=== PATIENT | female | born 1990 | race Hispanic/Latino ===

== ENCOUNTER 2020-07-20 14:00 | Inpatient (IN) | payer MEDICAID ==
[~2020-07-20] VITALS: Ht 157.5 cm; Wt 98.0 kg
[2020-07-21] VITALS (19 sets, daily range): BP systolic 85–110; BP diastolic 44–61
[2020-07-21] MEDS ORDERED: CEFAZOLIN SODIUM 1 GM VIAL IVP PRN (06:00)
[2020-07-21] MEDS ORDERED: LACTATED RINGERS 1000ML 1,000 ML IV SCH (06:00)
[2020-07-21 06:50] LABS: HEMATOCRIT 32.3 % (36-48); MEAN CORPUSCULAR HEMOGLOBIN 22.4 pg (27.0-33.0); MEAN CORPUSCULAR VOLUME 74.4 fL (79-99); NUCLEATED RED BLOOD CELLS 0.2 % (0.0-0.19); PLATELET COUNT (AUTO) 262 K/uL (130-400); RED BLOOD CELL COUNT(AUTO) 4.34 MIL/uL (4.00-5.50); RED CELL DISTRIBUTION WIDTH 18.4 % (11.0-15.5); WHITE BLOOD COUNT (AUTO) 8.9 K/uL (4.8-10.8)
[2020-07-21] MEDS ORDERED: DURAMORPH PF1 MG/ML 10ML AMP IV ONE (07:42)
[2020-07-21] MEDS ORDERED: FENTANYL CITRATE PF 50 MCG/1 ML 2ML VIAL ONE (07:42)
[2020-07-21] MEDS ORDERED: CITRIC ACID/SODIUM CITRATE 30 ML UDCUP ONE (07:50)
[2020-07-21] MEDS ORDERED: CEFAZOLIN SODIUM 1 GM VIAL IVP ONE (08:05)
[2020-07-21] MEDS ORDERED: OXYTOCIN 10 USP UNITS/ML ONE (08:14)
[2020-07-21] MEDS ORDERED: ONDANSETRON HCL 4 MG/2 ML VIAL ONE (08:17)
[2020-07-21] MEDS ORDERED: EPHEDRINE SULFATE 50 MG/ML AMPULE ONE (08:17)
[2020-07-21] MEDS ORDERED: PHENYLEPHRINE HCL 10 MG/ML 1ML VIAL IV ONE (08:48)
[2020-07-21] MEDS ORDERED: PROMETHAZINE HCL 25 MG/ML 1ML AMPULE IM PRN (09:00)
[2020-07-21] MEDS ORDERED: SODIUM CHLORIDE 0.9% 10 ML VIAL IVP PRN (09:00)
[2020-07-21] MEDS ORDERED: OXYTOCIN-LR 20 UNITS/1000 ML 1,000 ML IV PRN (09:00)
[2020-07-21] MEDS ORDERED: MEPERIDINE-PF 75 MG/ML SYG IM PRN (09:00)
[2020-07-21] MEDS ORDERED: PREN1COM17 PO (14:21)
[2020-07-21] MEDS ORDERED: NALOXONE HCL 0.4 MG/1 ML ML IVP PRN ×3 (16:45)
[2020-07-21] MEDS ORDERED: DiphenhydrAMINE HCL 50 MG/ML VIAL IVP PRN (16:45)
[2020-07-21] MEDS ORDERED: LORATADINE 10 MG TABLET PO PRN (16:45)
[2020-07-21] MEDS ORDERED: ONDANSETRON HCL 4 MG/2 ML VIAL IVP PRN (16:45)
[2020-07-21] MEDS ORDERED: MEPERIDINE-PF 25 MG/ML SYG IV PRN (16:45)
[2020-07-21] MEDS: DEXTROSE 5 %-0.45 % NACL 1,000 ML IV PRN (16:51)
[2020-07-21] MEDS ORDERED: ACETAMINOPHEN-CODEINE 300/30MG TAB PO PRN (20:30)
[2020-07-21] MEDS: ACETAMINOPHEN-CODEINE 300/30MG TAB PO PRN (21:35)
[2020-07-22] MEDS: DEXTROSE 5 %-0.45 % NACL 1,000 ML IV PRN (00:56)
[2020-07-22 03:52] VITALS: BP 98/58
[2020-07-22] MEDS: ACETAMINOPHEN-CODEINE 300/30MG TAB PO PRN (04:56)
[2020-07-22 06:12] LABS: HEPATITIS Bs ANTIGEN SCREEN P Negative (Negative)
[2020-07-22 06:17] LABS: HEMATOCRIT 29.4 % (36-48); MEAN CORPUSCULAR HEMOGLOBIN 22.3 pg (27.0-33.0); MEAN CORPUSCULAR HGB CONC 29.6 g/dL (32.0-36.0); MEAN CORPUSCULAR VOLUME 75.4 fL (79-99); RED BLOOD CELL COUNT(AUTO) 3.9 MIL/uL (4.00-5.50); RED CELL DISTRIBUTION WIDTH 18.4 % (11.0-15.5); WHITE BLOOD COUNT (AUTO) 9.4 K/uL (4.8-10.8)
[2020-07-22 07:25] VITALS: BP 109/61
[2020-07-22] MEDS ORDERED: IBUPROFEN 800 MG TAB PO SCH ×2 (09:00→09:30)
[2020-07-22] MEDS ORDERED: LANOLIN 30GM OINTMENT TP PRN (09:30)
[2020-07-22] MEDS ORDERED: SIMETHICONE 80 MG TAB.CHEW PO PRN (09:30)
[2020-07-22] MEDS ORDERED: MEASLES/MUMPS/RUBELLA VACCINE, LIVE 0.5 ML/VIAL SQ SCH (09:30)
[2020-07-22] MEDS ORDERED: DIPH,PERTUSS(ACELL),TET VAC/PF 0.5 ML VIAL IM SCH (09:30)
[2020-07-22] MEDS ORDERED: ACETAMINOPHEN-CODEINE 300/30MG TAB PO PRN (09:30)
[2020-07-22] MEDS ORDERED: BISACODYL 10 MG SUPP.RECT RC PRN (09:30)
[2020-07-22] MEDS ORDERED: HYDROCODONE/ACETAMINOPHEN 5/325 MG TAB PO PRN (09:30)
[2020-07-22] MEDS ORDERED: ACETAMINOPHEN EXTRA STRENGTH 500 MG TABLET PO PRN (09:30)
[2020-07-22] MEDS ORDERED: FLU VACC QS2020-21(6MOS UP)/PF 60 MCG/0.5 ML ML IM ONE ×2 (10:45→11:03)
[2020-07-22] MEDS ORDERED: DOCUSATE SODIUM 100 MG CAP PO ONE (11:02)
[2020-07-22 11:14] VITALS: BP 103/67
[2020-07-22] MEDS ORDERED: FLU VACC QS2020-21(6MOS UP)/PF 60 MCG/0.5 ML ML IM SCH (11:15)
[2020-07-22] MEDS ORDERED: DOCUSATE SODIUM 100 MG CAP PO SCH (21:00)
== END 2020-07-22 14:25 | disposition home or self-care (01) | DRG 540 ==
LOC: LDH 07-21 05:54 → WSH 07-21 11:00 → PREOBSVTOIN 07-21 15:55 → EDSTATUS 07-23 19:52
PROVIDERS: ADMIT Specialist; ATTEND Specialist
PROC: 3E0234Z Introduction of Serum, Toxoid and Vaccine into Muscle, Percutaneous Approach (ICD-10-PCS; 2020-07-21)
PROC: 3E0134Z Introduction of Serum, Toxoid and Vaccine into Subcutaneous Tissue, Percutaneous Approach (ICD-10-PCS; 2020-07-21)
PROC: 3E02340 Introduction of Influenza Vaccine into Muscle, Percutaneous Approach (ICD-10-PCS; 2020-07-21)
PROC: 10D00Z1 Extraction of Products of Conception, Low, Open Approach (ICD-10-PCS; principal; 2020-07-21 08:00)
DX: O34.211 Maternal care for low transverse scar from previous cesarean delivery (principal); O69.81X0 Labor and delivery complicated by cord around neck, without compression, not applicable or unspecified; Z3A.39 39 weeks gestation of pregnancy; Z37.0 Single live birth; Z20.828 Contact with and (suspected) exposure to other viral communicable diseases; Z23 Encounter for immunization; Z88.8 Allergy status to other drugs, medicaments and biological substances
CPT/HCPCS: 36415; 59510; 85027; 86592; 86850; 86900; 86901; 87340; 90707; 90715; A4344; G0008; G0378; J0690; J2274; J2370; J2405; J2590; J3010; J3490; J7120; Q2035; U0003

== ENCOUNTER 2020-11-01 22:01 | Emergency (ER) | payer MEDICAID ==
[~2020-11-01 22:01] MED LIST: PREN1COM17 PO
[2020-11-01] MEDS ORDERED: CEFTRIAXONE SODIUM 1 GM ONE (22:30)
[2020-11-01] MEDS ORDERED: PHENAZOPYRIDINE HCL 200 MG TABLET ONE (22:31)
[2020-11-01] MEDS ORDERED: ACETAMINOPHEN EXTRA STRENGTH 500 MG TABLET ONE (22:31)
[2020-11-01 22:33] LABS: BASOPHILS % (AUTO) 0.4 % (0.0-5.0); EOSINOPHILS % (AUTO) 0.1 % (0.0-8.0); HEMATOCRIT 36.3 % (36-48); LYMPHOCYTES % (AUTO) 12.5 % (21.0-51.0); MEAN CORPUSCULAR HEMOGLOBIN 26.9 pg (27.0-33.0); MEAN CORPUSCULAR HGB CONC 32.5 g/dL (32.0-36.0); MEAN CORPUSCULAR VOLUME 82.7 fL (79-99); MONOCYTES % (AUTO) 7.7 % (3.0-13.0); PLATELET COUNT (AUTO) 325 K/uL (130-400); RED BLOOD CELL COUNT(AUTO) 4.39 MIL/uL (4.00-5.50); RED CELL DISTRIBUTION WIDTH 18.5 % (11.0-15.5); WHITE BLOOD COUNT (AUTO) 14.1 K/uL (4.8-10.8)
[2020-11-01 22:34] LABS: APPEARANCE,URINE Clear (CLEAR); BILIRUBIN,URINE Negative (NEGATIVE); COLOR,URINE Yellow (YELLOW); GLUCOSE, URINE (UA) Negative (NEGATIVE); KETONES,URINE Negative (NEGATIVE); LEUKOCYTE ESTERASE ,URINE Moderate (NEGATIVE); NITRATE,URINE Negative (NEGATIVE); OCCULT BLOOD,URINE Large (NEGATIVE); PH,URINE 7.5 (5.0-8.0); PROTEIN,URINE Negative (NEGATIVE)
[2020-11-01 22:42] LABS: HCG,QUAL RESULT NEGATIVE (NEGATIVE)
[2020-11-01 22:42] LABS: CREATININE 0.9 mg/dL (0.5-1.5); POTASSIUM 3.4 mmol/L (3.5-5.1)
[2020-11-01 22:46] LABS: ALBUMIN 3.7 g/dL (3.5-5.0); BILIRUBIN,TOTAL 0.6 mg/dL (0.2-1.0); TOTAL PROTEIN, SERUM 8.2 g/dL (6.0-8.3)
[2020-11-01 22:56] LABS: RBC,URINE 0-1 /HPF (0-1)
[2020-11-01 22:57] LABS: BACTERIA,URINE Few /HPF (None Seen)
== END 2020-11-01 23:38 | disposition home or self-care (01) ==
LOC: EDH 22:01
DX: N30.00 Acute cystitis without hematuria (principal); E86.0 Dehydration; Z88.6 Allergy status to analgesic agent; Z98.890 Other specified postprocedural states
CPT/HCPCS: 36415; 80053; 81001; 81025; 83605; 85025; 87040 ×2; 87077 ×2; 87088; 87186 ×2; 96365; 99284; J0696

== ENCOUNTER 2022-06-11 23:49 | Emergency (ER) | payer MEDICAID ==
[~2022-06-11] VITALS: Ht 154.9 cm; Wt 75.3 kg
[2022-06-12 00:41] LABS: BASOPHILS % (AUTO) 0.2 % (0.0-5.0); EOSINOPHILS % (AUTO) 0.2 % (0.0-8.0); HEMATOCRIT 41.6 % (36-48); LYMPHOCYTES % (AUTO) 7.1 % (21.0-51.0); MEAN CORPUSCULAR HEMOGLOBIN 29.8 pg (27.0-33.0); MEAN CORPUSCULAR HGB CONC 32.9 g/dL (32.0-36.0); MEAN CORPUSCULAR VOLUME 90.6 fL (79-99); MONOCYTES % (AUTO) 5.4 % (3.0-13.0); NEUTROPHILS % (AUTO) 86.9 % (40.0-77.0); PLATELET COUNT (AUTO) 247 K/uL (130-400); RED BLOOD CELL COUNT(AUTO) 4.59 MIL/uL (4.00-5.50); RED CELL DISTRIBUTION WIDTH 13.6 % (11.0-15.5); WHITE BLOOD COUNT (AUTO) 9.6 K/uL (4.8-10.8)
[2022-06-12 00:42] LABS: APPEARANCE,URINE CLEAR (CLEAR); BILIRUBIN,URINE NEGATIVE (NEGATIVE); COLOR,URINE YELLOW (YELLOW); GLUCOSE, URINE (UA) NEGATIVE (NEGATIVE); KETONES,URINE 40 mg/dL (NEGATIVE); LEUKOCYTE ESTERASE ,URINE NEGATIVE Leu/uL (NEGATIVE); NITRATE,URINE NEGATIVE (NEGATIVE); OCCULT BLOOD,URINE NEGATIVE (NEGATIVE); PROTEIN,URINE 10 mg/dL (NEGATIVE)
[2022-06-12 00:48] LABS: CREATININE 0.7 mg/dL (0.5-1.5); POTASSIUM 3.5 mmol/L (3.5-5.1)
[2022-06-12 00:53] LABS: TOTAL PROTEIN, SERUM 7.7 g/dL (6.0-8.3)
[2022-06-12] MEDS ORDERED: ONDANSETRON 4MG INJ IVP ONE (01:00)
[2022-06-12] MEDS ORDERED: 0.9%NACL 1000ML 1,000 ML IV ONE (01:30)
[2022-06-12] MEDS ORDERED: ACETAMINOPHEN 500 MG TABLET PO ONE (01:30)
[2022-06-12] MEDS ORDERED: ONDA22I PO (04:48)
[2022-06-12 04:56] VITALS: BP 118/64
== END 2022-06-12 05:04 | disposition home or self-care (01) ==
LOC: EDH 23:49
DX: B34.9 Viral infection, unspecified (principal); Z20.822 Contact with and (suspected) exposure to COVID-19; F41.9 Anxiety disorder, unspecified; Z98.890 Other specified postprocedural states; Z88.6 Allergy status to analgesic agent; Z79.899 Other long term (current) drug therapy
CPT/HCPCS: 99283; 87635; 80053; 85025; 87804 ×2; 81003; 81025; 36415; 96374; 96361; C9803; J7030; J2405

== ENCOUNTER 2023-01-03 20:54 | Emergency (ER) | payer MEDICAID ==
[~2023-01-03] VITALS: Ht 154.9 cm; Wt 71.2 kg
[~2023-01-03 20:54] MED LIST changes: +ONDA22I PO
[2023-01-03 22:11] VITALS: BP 140/78
== END 2023-01-04 00:18 | disposition left against medical advice (07) ==
LOC: EDH 20:54
DX: R42 Dizziness and giddiness (principal); Z53.21 Procedure and treatment not carried out due to patient leaving prior to being seen by health care provider
CPT/HCPCS: 99281

== ENCOUNTER 2023-07-25 20:55 | Emergency (ER) | payer MEDICAID, OTHER ==
[~2023-07-25] VITALS: Ht 157.5 cm; Wt 79.4 kg
[2023-07-25 21:29] LABS: RAPID GROUP A STREP negative (NEGATIVE)
[2023-07-25 21:33] LABS: SARS-CoV-2, RNA, NAAT NEGATIVE SARS CoV-2 (NEGATIVE)
[2023-07-25 21:37] LABS: INFLUENZA TYPE A Negative For Type A (NEGATIVE); INFLUENZA TYPE B Negative For Type B (NEGATIVE)
[2023-07-25 21:47] LABS: BASOPHILS # (AUTO) 0.05 K/uL (0.00-0.20); BASOPHILS % (AUTO) 0.3 % (0.0-5.0); EOSINOPHILS # (AUTO) 0.04 K/uL (0.00-0.70); EOSINOPHILS % (AUTO) 0.3 % (0.0-8.0); HEMATOCRIT 41.4 % (36-48); IMMATURE GRANULOCYTE ABSOLUTE 0.06 K/uL (0-1); LYMPHOCYTES # (AUTO) 2.7 K/uL (1.0-4.8); LYMPHOCYTES % (AUTO) 18.7 % (21.0-51.0); MEAN CORPUSCULAR HGB CONC 33.1 g/dL (32.0-36.0); MEAN CORPUSCULAR VOLUME 90.8 fL (79-99); MONOCYTES % (AUTO) 6.8 % (3.0-13.0); NEUTROPHILS # (AUTO) 10.8 K/uL (1.8-7.7); NEUTROPHILS % (AUTO) 73.5 % (40.0-77.0); PLATELET COUNT (AUTO) 283 K/uL (130-400); RED BLOOD CELL COUNT(AUTO) 4.56 MIL/uL (4.00-5.50); RED CELL DISTRIBUTION WIDTH 14.2 % (11.0-15.5); WHITE BLOOD COUNT (AUTO) 14.7 K/uL (4.8-10.8)
[2023-07-25 22:01] LABS: CREATININE 0.6 mg/dL (0.5-1.5); POTASSIUM 3.7 mmol/L (3.5-5.1)
[2023-07-25 22:05] LABS: ALBUMIN 3.8 g/dL (3.5-5.0); BILIRUBIN,TOTAL 0.7 mg/dL (0.2-1.0); TOTAL PROTEIN, SERUM 8.1 g/dL (6.0-8.3)
[2023-07-25 22:58] VITALS: BP 121/65; PULSE 64; RESP 16; O2SAT 100
[2023-07-25] MEDS ORDERED: 0.9%NACL 1000ML 1,000 ML IV ONE (23:00)
[2023-07-25 23:09] LABS: ADD UA MICROSCOPIC NO; APPEARANCE,URINE CLEAR (CLEAR); BILIRUBIN,URINE NEGATIVE (NEGATIVE); COLOR,URINE COLORLESS (YELLOW); GLUCOSE, URINE (UA) NEGATIVE (NEGATIVE); KETONES,URINE NEGATIVE (NEGATIVE); LEUKOCYTE ESTERASE ,URINE NEGATIVE Leu/uL (NEGATIVE); NITRATE,URINE NEGATIVE (NEGATIVE); OCCULT BLOOD,URINE NEGATIVE (NEGATIVE); PROTEIN,URINE NEGATIVE (NEGATIVE); UROBILINOGEN,URINE 0.2 mg/dL (0.2-1.0)
[2023-07-25 23:11] LABS: AMYLASE 49 U/L (25-115)
[2023-07-25] MEDS ORDERED: ONDA-104 PO (23:54)
[2023-07-25] MEDS ORDERED: OMEP40CA21 PO (23:54)
== END 2023-07-26 00:20 | disposition home or self-care (01) ==
LOC: EDH 20:55
DX: O26.891 Other specified pregnancy related conditions, first trimester (principal); R10.33 Periumbilical pain; R55 Syncope and collapse; F41.9 Anxiety disorder, unspecified; Z3A.08 8 weeks gestation of pregnancy; Z88.5 Allergy status to narcotic agent; Z20.822 Contact with and (suspected) exposure to COVID-19
CPT/HCPCS: 99284; 76801; 87635; 82150; 84484; 80053; 83690; 85025; 87880; 87804 ×2; 81003; 36415; 93005; C9803; J7030

== ENCOUNTER 2023-09-16 00:10 | Emergency (ER) | payer MEDICAID, OTHER ==
[~2023-09-16 00:10] MED LIST changes: +OMEP40CA21 PO; +ONDA-104 PO
== END 2023-09-16 00:27 | disposition left against medical advice (07) ==
LOC: EDH 00:10
DX: T78.40XA Allergy, unspecified, initial encounter (principal); Z53.21 Procedure and treatment not carried out due to patient leaving prior to being seen by health care provider; X58.XXXA Exposure to other specified factors, initial encounter